=== PATIENT | male | born 1965 | race Caucasian/White ===

== ENCOUNTER 2020-02-10 08:27 | Outpatient (REF) | payer OTHER, SELFPAY ==
[2020-02-10 08:54] LABS: COVID-19 Test Negative (Negative)
== END 2020-02-10 08:28 | disposition home or self-care (01) ==
LOC: HO.LAB 08:27
PROVIDERS: Visit Provider Internal Medicine
DX: Z20.828 Contact with and (suspected) exposure to other viral communicable diseases (principal)
CPT/HCPCS: 87635; C9803

== ENCOUNTER 2020-02-12 08:29 | Outpatient (REF) | payer OTHER, SELFPAY ==
[2020-02-12 08:52] LABS: COVID-19 Test Negative (Negative)
== END 2020-02-12 08:30 | disposition home or self-care (01) ==
LOC: HO.LAB 08:29
PROVIDERS: Visit Provider Internal Medicine
DX: Z20.828 Contact with and (suspected) exposure to other viral communicable diseases (principal)
CPT/HCPCS: 87635; C9803

== ENCOUNTER 2020-05-11 11:22 | Outpatient (REF) | payer OTHER, SELFPAY ==
[2020-05-11 11:42] LABS: COVID-19 Test Negative (Negative); IDNOW Serial# 55D5AD1C
== END 2020-05-11 11:23 | disposition home or self-care (01) ==
LOC: HO.EMPCOV 11:22
PROVIDERS: Visit Provider Internal Medicine
DX: Z20.822 Contact with and (suspected) exposure to COVID-19 (principal)
CPT/HCPCS: 36415; 87635; C9803